=== PATIENT | male | born 1965 | race Caucasian/White ===

== ENCOUNTER 2016-07-26 17:26 | Emergency (ER) | payer MEDICARE, OTHER ==
[2016-07-26 18:05] LABS: HEMOGLOBIN 16.5 gm/dl (14.0-17.5); RED BLOOD COUNT 5.32 M/UL (4.20-5.50); WHITE BLOOD COUNT 11.2 K/UL (4.5-11.0)
[2016-10-29] MEDS ORDERED: CITRACAL + D E1 EACH PO (09:14)
[2016-10-29] MEDS ORDERED: LIPITOR TAB 2020 MG PO (09:14)
[2016-10-29] MEDS ORDERED: MULTI-DAY VITA1 EACH PO (09:15)
[2016-10-29] MEDS ORDERED: CLARITIN 10MG T10 MG PO (09:15)
[2016-10-29] MEDS ORDERED: LEVOTHYROXINE137 MCG PO (09:15)
[2016-10-29] MEDS ORDERED: PHENOBARBITAL30 MG PO (09:16)
[2016-10-29] MEDS ORDERED: OMEPRAZOLE20 M1 PO (09:17)
[2016-10-29] MEDS ORDERED: FLOMAX 0.4 MG0.4 MG PO (09:17)
[2016-10-29] MEDS ORDERED: VIT D PO (09:17)
[2016-10-29] MEDS ORDERED: SOD CHLORIDE (09:19)
[2016-10-29] MEDS ORDERED: TYLENOL 500 MG500 MG PO (09:20)
[2016-10-29] MEDS ORDERED: TOPIRAMATE100 MG PO (09:20)
[2016-10-29] MEDS ORDERED: DIVALPROEX SOD500 M1 PO (09:21)
[2016-10-29] MEDS ORDERED: DICYCLOMINE HCL10 MG PO (09:22)
[2016-10-29] MEDS ORDERED: PHENERGAN 12.12.5 M1 PO (09:23)
== END 2016-07-26 21:55 | disposition home or self-care (01) ==
LOC: ER1 17:26
PROVIDERS: Emergency Medicine
DX: R10.84 Generalized abdominal pain (principal); R11.2 Nausea with vomiting, unspecified; R50.9 Fever, unspecified; Z88.0 Allergy status to penicillin; Z88.6 Allergy status to analgesic agent; Z85.038 Personal history of other malignant neoplasm of large intestine; Z85.841 Personal history of malignant neoplasm of brain; E07.9 Disorder of thyroid, unspecified; I69.951 Hemiplegia and hemiparesis following unspecified cerebrovascular disease affecting right dominant side
CPT/HCPCS: 36415; 80048; 80053; 81001; 83605; 85025; 85027; 87086; 99284; J7030; J7050; Q9962

== ENCOUNTER 2016-09-25 22:32 | Observation (INO) | payer MEDICARE, OTHER ==
[~2016-09-25] VITALS: Ht 190.5 cm; Wt 118.4 kg
[2016-09-26 00:19] LABS: HEMOGLOBIN 16.1 gm/dl (14.0-17.5); RED BLOOD COUNT 5.2 M/UL (4.20-5.50); WHITE BLOOD COUNT 12.1 K/UL (4.5-11.0)
[2016-09-26] MEDS ORDERED: INVANZ 1 GM VIAL1 GM IV (03:44)
[2016-09-26] MEDS ORDERED: LIPITOR TAB 2020 MG PO (03:44)
[2016-09-26] MEDS ORDERED: CLARITIN 10MG T10 MG PO (03:46)
[2016-09-26] MEDS ORDERED: CITRACAL + D E1 EACH PO (03:46)
[2016-09-26] MEDS ORDERED: SYNTHROID137 MCG PO (03:46)
[2016-09-26] MEDS ORDERED: FLOMAX 0.4 MG0.4 MG PO (03:47)
[2016-09-26] MEDS ORDERED: MULTIVITAMINS1 EAC1 PO (03:47)
[2016-09-26] MEDS ORDERED: PHENOBARBITAL30 MG PO (03:47)
[2016-09-26] MEDS ORDERED: VITAMIN D350000 UNIT PO (04:00)
[2016-09-26] MEDS ORDERED: OMEPRAZOLE20 M1 PO (04:01)
[2016-09-26] MEDS ORDERED: TOPIRAMATE100 MG PO (04:02)
[2016-09-26] MEDS ORDERED: SODIUM CHLORIDE3 ML INH (04:02)
[2016-09-26] MEDS ORDERED: TYLENOL 500 MG500 MG PO (04:03)
[2016-09-26] MEDS ORDERED: ACETAMINOPHEN500 MG PO (04:03)
[2016-09-26] MEDS ORDERED: DEPAKOTE500 MG PO (04:04)
[2016-09-26] MEDS ORDERED: DICYCLOMINE HCL10 MG PO (04:05)
[2016-09-26] MEDS ORDERED: PHENERGAN 12.12.5 M1 PO (04:07)
[2016-09-26 07:06] LABS: HEMOGLOBIN 15.9 gm/dl (14.0-17.5); RED BLOOD COUNT 5.08 M/UL (4.20-5.50); WHITE BLOOD COUNT 12.7 K/UL (4.5-11.0)
[2016-10-29] MEDS ORDERED: CITRACAL + D E1 EACH PO (09:14)
[2016-10-29] MEDS ORDERED: LIPITOR TAB 2020 MG PO (09:14)
[2016-10-29] MEDS ORDERED: MULTI-DAY VITA1 EACH PO (09:15)
[2016-10-29] MEDS ORDERED: CLARITIN 10MG T10 MG PO (09:15)
[2016-10-29] MEDS ORDERED: LEVOTHYROXINE137 MCG PO (09:15)
[2016-10-29] MEDS ORDERED: PHENOBARBITAL30 MG PO (09:16)
[2016-10-29] MEDS ORDERED: FLOMAX 0.4 MG0.4 MG PO (09:17)
[2016-10-29] MEDS ORDERED: OMEPRAZOLE20 M1 PO (09:17)
[2016-10-29] MEDS ORDERED: VIT D PO (09:17)
[2016-10-29] MEDS ORDERED: SOD CHLORIDE (09:19)
[2016-10-29] MEDS ORDERED: TOPIRAMATE100 MG PO (09:20)
[2016-10-29] MEDS ORDERED: TYLENOL 500 MG500 MG PO (09:20)
[2016-10-29] MEDS ORDERED: DIVALPROEX SOD500 M1 PO (09:21)
[2016-10-29] MEDS ORDERED: DICYCLOMINE HCL10 MG PO (09:22)
[2016-10-29] MEDS ORDERED: PHENERGAN 12.12.5 M1 PO (09:23)
== END 2016-09-26 16:46 ==
LOC: ER1 22:32 → M/S 09-26 02:00 → ZEROF 09-26 02:00 → M/S 09-26 03:20
PROVIDERS: Emergency Medicine; ADMIT Internal Medicine
DX: R11.2 Nausea with vomiting, unspecified (principal); D72.829 Elevated white blood cell count, unspecified; K59.00 Constipation, unspecified; Z85.038 Personal history of other malignant neoplasm of large intestine; Z85.841 Personal history of malignant neoplasm of brain; Z88.0 Allergy status to penicillin
CPT/HCPCS: 36415; 71010; 80053; 81001; 82150; 83605; 83690; 85025; 85027; 87040; 87086; 99285; G0378

== ENCOUNTER 2021-01-08 16:20 | Emergency (ER) | payer MEDICARE, OTHER ==
[~2021-01-08 16:20] MED LIST: ACETAMINOPHEN500 MG PO; CITRACAL + D E1 EACH PO; CLARITIN 10MG T10 MG PO; DEPAKOTE500 MG PO; DICYCLOMINE HCL10 MG PO; DIVALPROEX SOD500 M1 PO; FLOMAX 0.4 MG0.4 MG PO; INVANZ 1 GM VIAL1 GM IV; LEVOTHYROXINE137 MCG PO; LIPITOR TAB 2020 MG PO; MULTI-DAY VITA1 EACH PO; MULTIVITAMINS1 EAC1 PO; OMEPRAZOLE20 M1 PO; PHENERGAN 12.12.5 M1 PO; PHENOBARBITAL30 MG PO; SOD CHLORIDE; SODIUM CHLORIDE3 ML INH; SYNTHROID137 MCG PO; TOPIRAMATE100 MG PO; TYLENOL 500 MG500 MG PO; VIT D PO; VITAMIN D350000 UNIT PO
[2021-01-08 17:46] LABS: HEMOGLOBIN 16.1 gm/dl (14.0-17.5); RED BLOOD COUNT 4.93 M/UL (4.20-5.50); WHITE BLOOD COUNT 11.7 K/UL (4.5-11.0)
[2021-01-08 19:55] LABS: BUN/CREATININE RATIO 15 (0-10)
[2021-01-09 20:32] LABS: ACINETOBACTER BAUMANNII Not Detected (Negative); CANDIDA ALBICANS Not Detected (Negative); CANDIDA KRUSEI Not Detected (Negative); CANDIDA TROPICALIS Not Detected (Negative); ENTEROCOCCUS Not Detected (Negative); ESCHERICHIA COLI Not Detected (Negative); HAEMOPHILUS INFLUENZAE Not Detected (Negative); KLEBSIELLA OXYTOCA Not Detected (Negative); KLEBSIELLA PNEUMONIAE Not Detected (Negative); KPC-CARBAPENEM-RESISTANCE GENE Not Detected (Negative); PROTEUS Not Detected (Negative); PSEUDOMONAS AERUGINOSA Not Detected (Negative); SERRATIA MARCESANS Not Detected (Negative); STAPHYLOCOCCUS AUREUS Not Detected (Negative); STREP AGALACTIAE (GROUP B) Not Detected (Negative); STREP PYOGENES (GROUP A) Not Detected (Negative); STREPTOCOCCUS Not Detected (Negative); vanA/B (VANCOMYCIN RESIST GENE Not Detected (Negative)
[2021-01-09 23:00] LABS: mecA (METHICILLIN RESIST GENE DETECTED (Negative)
[2021-01-09 23:01] LABS: STAPHYLOCOCCUS DETECTED (Negative)
== END 2021-01-08 23:30 ==
LOC: ER1 16:20
PROVIDERS: Physician Assistant
DX: R41.82 Altered mental status, unspecified (principal); N18.9 Chronic kidney disease, unspecified; E03.9 Hypothyroidism, unspecified; Z88.0 Allergy status to penicillin; Z88.6 Allergy status to analgesic agent
CPT/HCPCS: 70450; 71045; 80053; 80184; 81001; 82550; 82553; 83874; 84484; 85025; 87040; 87150; 93005; 99285; G0480

== ENCOUNTER → 2021-01-23 | Outpatient (CLI) | payer MEDICARE, OTHER ==
[2021-01-23 18:05] LABS: HEMOGLOBIN 14.7 gm/dl (14.0-17.5); RED BLOOD COUNT 4.69 M/UL (4.20-5.50); WHITE BLOOD COUNT 10.8 K/UL (4.5-11.0)
[2021-01-23 18:42] LABS: BUN/CREATININE RATIO 12 (0-10)
== END ==
LOC: LBRF 17:35
PROVIDERS: Family Medicine
DX: N40.0 Benign prostatic hyperplasia without lower urinary tract symptoms (principal); G40.909 Epilepsy, unspecified, not intractable, without status epilepticus; D12.7 Benign neoplasm of rectosigmoid junction
CPT/HCPCS: 80053; 80184; 85025; G0480

== ENCOUNTER 2021-03-29 10:12 | Emergency (ER) | payer MEDICARE, OTHER ==
[2021-03-29 11:03] LABS: HEMOGLOBIN 17.2 gm/dl (14.0-17.5); RED BLOOD COUNT 5.23 M/UL (4.20-5.50); WHITE BLOOD COUNT 9.6 K/UL (4.5-11.0)
[2021-03-29 11:30] LABS: BUN/CREATININE RATIO 9 (0-10)
== END 2021-03-29 16:26 | disposition home or self-care (01) ==
LOC: ER1 10:12
PROVIDERS: Emergency Medicine
DX: G93.40 Encephalopathy, unspecified (principal); E86.0 Dehydration; I25.10 Atherosclerotic heart disease of native coronary artery without angina pectoris; N18.9 Chronic kidney disease, unspecified; Z86.16 Personal history of COVID-19; Z86.73 Personal history of transient ischemic attack (TIA), and cerebral infarction without residual deficits; K21.9 Gastro-esophageal reflux disease without esophagitis; Z20.822 Contact with and (suspected) exposure to COVID-19
CPT/HCPCS: 0240U; 36600; 70450; 71045; 80053; 81001; 82550; 82553; 82803; 83605; 83690; 83874; 84484; 85025; 87040; 87086; 93005; 99283; J7030

== ENCOUNTER 2021-05-28 05:48 | Emergency (ER) | payer MEDICARE, OTHER ==
[2021-05-28 06:54] LABS: HEMOGLOBIN 15.5 gm/dl (14.0-17.5); RED BLOOD COUNT 4.78 M/UL (4.20-5.50); WHITE BLOOD COUNT 8.5 K/UL (4.5-11.0)
[2021-05-28 07:09] LABS: BORDETELLA PARAPERTUSSIS Not Detected (Not Detectd); BORDETELLA PERTUSSIS Not Detected (Not Detectd); CHLAMYDIA PNEUMONIAE Not Detected (Not Detectd); CORONAVIRUS HKU1 Not Detected (Not Detectd); CORONAVIRUS NL63 Not Detected (Not Detectd); CORONAVIRUS OC43 Not Detected (Not Detectd); CORONOAVIRUS 229E Not Detected (Not Detectd); HUMAN METAPNEUMOVIRUS Not Detected (Not Detectd); HUMAN RHINOVIRUS/ENTEROVIRUS Not Detected (Not Detectd); INFLUENZA A Not Detected (Not Detectd); INFLUENZA B Not Detected (Not Detectd); MYCOPLASMA PNEUMONIAE Not Detected (Not Detectd); PARAINFLUENZA VIRUS 1 Not Detected (Not Detectd); PARAINFLUENZA VIRUS 2 Not Detected (Not Detectd); PARAINFLUENZA VIRUS 3 Not Detected (Not Detectd); PARAINFLUENZA VIRUS 4 Not Detected (Not Detectd); RESPIRATORY SYNCYTIAL VIRUS Not Detected (Not Detectd)
[2021-05-28 08:37] LABS: SARS-CoV-2 NOT DETECTED (Not Detectd)
== END 2021-05-28 14:40 | disposition home or self-care (01) ==
LOC: ER1 05:48
PROVIDERS: Physician Assistant Medical
DX: G40.909 Epilepsy, unspecified, not intractable, without status epilepticus (principal); E86.0 Dehydration; Z20.822 Contact with and (suspected) exposure to COVID-19; K21.9 Gastro-esophageal reflux disease without esophagitis
CPT/HCPCS: 36600; 70450; 71045; 80053; 82550; 82553; 82803; 83605; 83874; 84439; 84443; 84484; 85025; 87040; 87633; 93005; 99285; G0480